=== PATIENT | female | born 2005 | race Two or more races ===

== ENCOUNTER 2024-04-16 21:23 | Emergency (ER) | payer OTHER ==
[~2024-04-16] VITALS: Ht 167.6 cm; Wt 81.8 kg
[2024-04-16 21:39] VITALS: BP 123/73; PULSE 93; RESP 18; TEMP 98.4; O2SAT 99
[2024-04-16 22:20] LABS: BASOPHILS % (AUTO) 0.3 % (0.0-2.0); EOSINOPHILS % (AUTO) 1.9 % (1.0-6.0); HEMOGLOBIN 13.1 g/dL (12.0-16.0); LYMPHOCYTES # (AUTO) 3.8 K/uL (1.0-4.8); LYMPHOCYTES % (AUTO) 34.2 % (22.0-44.0); MEAN CORPUSCULAR HEMOGLOBIN 31.6 pg (26.0-34.0); MEAN CORPUSCULAR HGB CONC 33.5 G/dL (31.0-37.0); MEAN CORPUSCULAR VOLUME 94 fL (80-100); MONOCYTES # (AUTO) 0.6 K/uL (0.1-1.0); MONOCYTES % (AUTO) 5.5 % (2.0-9.0); NEUTROPHILS # (AUTO) 6.5 K/uL (1.8-7.7); NEUTROPHILS % (AUTO) 58.1 % (40.0-70.0); PLATELET COUNT (AUTO) 284 K/uL (150-450); RED BLOOD CELL COUNT(AUTO) 4.14 MIL/uL (4.00-5.20); WHITE BLOOD COUNT (AUTO) 11.1 K/uL (4.5-11.0)
[2024-04-16 22:27] LABS: ANION GAP 9 mmol/L (8-16); CALCIUM, TOTAL 8.7 mg/dL (8.8-10.5); CARBON DIOXIDE 29 mmol/L (22-29); CHLORIDE 105 mmol/L (98-107); GLOMERULAR FILTR. RATE CALC > 60 mL/min (>60); GLUCOSE,RANDOM 99 mg/dL (70-110); POTASSIUM 4.1 mmol/L (3.5-5.1); SODIUM SERUM 143 mmol/L (136-145); UREA NITROGEN, BLOOD 9 mg/dL (7-18)
[2024-04-16 22:35] LABS: TROPONIN I-HIGH SENSITIVITY 5 ng/L (<51)
[2024-04-16] MEDS: ACETAMINOPHEN 325 MG TABLET PO ONE (23:22)
[2024-04-16] MEDS: IBUPROFEN 400 MG TABLET PO ONE (23:22)
== END 2024-04-16 23:57 | disposition home or self-care (01) ==
LOC: EMS 21:23
DX: R07.89 Other chest pain (principal)
CPT/HCPCS: 71045; 80048; 84484; 85025; 93005; 99285; 36415-L1; 36415-TC